=== PATIENT | female | born 1985 | race Caucasian/White ===

== ENCOUNTER 2022-11-12 07:42 | Outpatient (CLI) | payer OTHER | END 2022-11-12 07:43 | disposition home or self-care (01) | LOC: CT 07:42 → EDSTATUS 09:00 | PROVIDERS: ATTEND Family Medicine | DX: R22.2 Localized swelling, mass and lump, trunk (principal); M48.8X4 Other specified spondylopathies, thoracic region | CPT/HCPCS: 74176 ==